=== PATIENT | female | born 1945 | race Caucasian/White ===

== ENCOUNTER 2016-05-31 13:04 | Inpatient (IN) | payer OTHER, MEDICARE ==
--- NOTE | 2016-05-31 13:00 | EDPHY ---
H & P Source: Patient Exam Limitations: No limitations Constitutional: Initial Vital Signs Temperature (C) 36.5 C 05/31/16 13:13 Heart Rate 82 05/31/16 13:13 Respiratory Rate 18 05/31/16 13:13 Blood Pressure 150/66 H 05/31/16 13:13 O2 Sat (%) 99 05/31/16 13:13 O2 Delivery Mode Room Air Allergies/Adverse Reactions: No Known Allergies Allergy (Unverified 05/31/16 13:11) Home Medications: Medication Instructions Recorded Trintellix 05/31/16 Visicare 05/31/16 buPROPion 05/31/16 traZODONE 100MG (*) 05/31/16 Medical Decision Making ED Course/Re-evaluation: CHIEF COMPLAINT: Right hip pain. HISTORY OF PRESENT ILLNESS: The patient is a 70-year-old female who presents via EMS with right hip pain secondary to falling down 4 stairs and landing on concrete just prior to arrival. The pain does not radiate and is worsened with movement. She did not hit her head. She has a small amount of neck pain but full range of motion. The fall was mechanical and she denies preceding factors such as dizziness, chest pain, shortness of breath. She denies numbness, weakness, paresthesias, chest pain, or other complaints. REVIEW OF SYSTEMS: A 10 point review of systems was performed and is negative with the exception of the elements mentioned in the history of present illness. PHYSICAL EXAM: HR, BP, O2 Sat, RR. Temp noted General Appearance: Alert, well hydrated, appropriate, and non-toxic appearing. Head: Atraumatic without scalp tenderness or obvious injury Eyes: Pupils equal, round, reactive to light and accommodation, EOMI, no trauma , no injection. Ears: Clear bilaterally, no perforation, normal landmarks Nose: Atraumatic, no rhinorrhea, clear. Throat: There is no erythema or exudates, no lesions, normal tonsils, mucus membranes moist. Neck: Supple, 2+ carotid upstroke, nontender, no lymphadenopathy. Full ROM. Respiratory: No retractions, no distress, no wheezes, and no accessory muscle use. Lungs are clear to auscultation bilaterally. Cardiovascular: Regular rate and rhythm, no murmurs, rubs, or gallops. Bilateral carotid, radial, dorsalis pedis, and posterior tibial pulses intact. Good capillary refill all extremities. Gastrointestinal: Abdomen is soft, nontender, non-distended, no masses, no rebound, no guarding, no peritoneal signs. Musculoskeletal: Pain along pelvic brim and anterior/inferior/superior iliac spine. Neurological: Alert, appropriate, and interactive. The patient has normal DTRs and non-focal cranial nerves, motor, sensory, and cerebellar exam. Skin: No rashes, good turgor, no nodules on palpation. Past medical history: Tibial plateau fracture. Past surgical history: Denies. Family history: N/A. Social history: . DIAGNOSTICS/PROCEDURES/CRITICAL CARE TIME: Study: Right Hip x-ray Indication: Trauma. Results: I viewed the images myself on the PACS system. My interpretation of the images is: pelvic fracture. The radiologist interpretation is pending at the time of this dictation. Study: Right Shoulder X-ray Indication: Trauma. Results: I viewed the images myself on the PACS system. My interpretation of the images is: no acute process. The radiologist interpretation is pending at the time of this dictation. Study: Chest X-ray Indication: Trauma. Results: I viewed the images myself on the PACS system. My interpretation of the images is: no acute process. The radiologist interpretation is pending at the time of this dictation. Study: CT of the pelvis. Indication: Trauma. Results: 1. Fracture right inferior pubic ramus and right symphysis. No associated lytic or sclerotic osseous lesion. 2. Fracture of the right sacrum adjacent to the SI joint as well as nondisplaced fracture right transverse process of L5. 3. Thickening of the right piriformis muscle probably related to the right sacral fracture. This could represent associated contusion of the muscle. 4. Hypodense possible complex cyst right adnexa. Consider pelvic ultrasound at some point for further characterization. The study was read by the radiologist, Dr. Dillard. I viewed the images myself on the PACS system. DIFFERENTIAL DIAGNOSIS: The differential diagnosis for the patient's trauma included but was not limited to long bone and pelvic bone fractures, spinal injury, sacroiliitis. MEDICAL DECISION MAKIN-year-old female presents with right hip pain after falling down 4 stairs onto concrete. On exam she has tenderness along the right pelvic brim and over the ant/inf/sup iliac spine. This pain appears severe and is worsened with movement. She has mild lateral neck pain but full range of motion. She did not hit her head or lose consciousness. It is clear this was a mechanical fall and she did not experience a syncopal episode. She is not complaining of numbness, weakness, or paresthesias. Right hip, chest, and right shoulder x-rays ordered. .5mg IV Dilaudid for pain. I ordered lab work to account for the possibility of surgical repair. This patient has been followed by [facility] prior to today for tibial plateau fracture. Right hip shows pelvic fracture. Pelvic CT ordered to further delineate extent of fracture. Chest and right shoulder x-rays negative as interpreted by me. 1449: CT results conveyed to me by Dr. Dillard. See report above. 1454: Consulted with Dr. Collier, orthopedics. He will consult on the patient and view imaging studies. 1458: Consulted with Dr. Silva, hospitalist. She accepts admission. Neurosurgery paged. 1500: Consulted with Dr. Garay, neurosurgery. He will consult on the patient. 1507: Consulted with Dr. Fam, surgery. He will consult on the patient. I discussed with the patient the results of her course and imaging. I answered all of her questions. - Data Points Laboratory Results: Laboratory Results 05/31/16 14:00 05/31/16 14:00 05/31/16 05/31/16 05/31/16 15:00 14:00 14:00 WBC RBC Hgb Hct MCV MCH MCHC RDW Plt Count MPV Neut % (Auto) Lymph % (Auto) [place] % (Auto) Eos % (Auto) Baso % (Auto) Nucleat RBC Rel Count Absolute Neuts (auto) Absolute Lymphs (auto) Absolute Monos (auto) Absolute Eos (auto) Absolute Basos (auto) Absolute Nucleated RBC Immature Gran % Immature Gran # PT 12.6 SEC SEC (12.0-15.0) INR 0.95 (0.83-1.16) APTT 29.9 SEC SEC (23.0-38.0) Sodium 139 mEq/L mEq/L (134-144) Potassium 4.0 mEq/L mEq/L (3.5-5.2) Chloride 105 mEq/L mEq/L (97-110) Carbon Dioxide 24 mEq/l mEq/l (22-31) Anion Gap 10 mEq/L mEq/L (8-16) BUN 20 mg/dL mg/dL (7-23) Creatinine 0.9 mg/dL mg/dL (0.6-1.0) Estimated GFR > 60 Glucose 86 mg/dL mg/dL (70-100) Calcium 10.1 mg/dL mg/dL (8.5-10.4) Urine Color Pending Urine Appearance Pending Urine pH Pending Ur Specific [place] Pending Urine Protein Pending Urine Ketones Pending Urine Blood Pending Urine Nitrate Pending Urine Bilirubin Pending Urine Urobilinogen Pending Ur Leukocyte Esterase Pending Ur Culture Indicated? Pending Urine Glucose Pending 05/31/16 14:00 WBC 13.81 10^3/uL H 10^3/uL (3.80-9.50) RBC 4.35 10^6/uL 10^6/uL (4.18-5.33) Hgb 13.7 g/dL g/dL (12.6-16.3) Hct 41.1 % % (38.0-47.0) MCV 94.5 fL fL (81.5-99.8) MCH 31.5 pg pg (27.9-34.1) MCHC 33.3 g/dL g/dL (32.4-36.7) RDW 13.2 % % (11.5-15.2) Plt Count 217 10^3/uL 10^3/uL (150-400) MPV 10.0 fL fL (8.7-11.7) Neut % (Auto) 81.2 % H % (39.3-74.2) Lymph % (Auto) 11.7 % L % (15.0-45.0) [place] % (Auto) 5.3 % % (4.5-13.0) Eos % (Auto) 0.4 % L % (0.6-7.6) Baso % (Auto) 0.4 % % (0.3-1.7) Nucleat RBC Rel Count 0.0 % % (0.0-0.2) Absolute Neuts (auto) 11.22 10^3/uL H 10^3/uL (1.70-6.50) Absolute Lymphs (auto) 1.61 10^3/uL 10^3/uL (1.00-3.00) Absolute Monos (auto) 0.73 10^3/uL 10^3/uL (0.30-0.80) Absolute Eos (auto) 0.05 10^3/uL 10^3/uL (0.03-0.40) Absolute Basos (auto) 0.06 10^3/uL 10^3/uL (0.02-0.10) Absolute Nucleated RBC 0.00 10^3/uL 10^3/uL (0-0.01) Immature Gran % 1.0 % % (0.0-1.1) Immature Gran # 0.14 10^3/uL H 10^3/uL (0.00-0.10) PT INR APTT Sodium Potassium Chloride Carbon Dioxide Anion Gap BUN Creatinine Estimated GFR Glucose Calcium Urine Color Urine Appearance Urine pH Ur Specific [place] Urine Protein Urine Ketones Urine Blood Urine Nitrate Urine Bilirubin Urine Urobilinogen Ur Leukocyte Esterase Ur Culture Indicated? Urine Glucose Medications Given: Discontinued Medications Hydromorphone HCl (Dilaudid) 0.5 mg IVP EDNOW ONE Stop: 05/31/16 13:30 Last Admin: 05/31/16 13:42 Dose: 0.5 mg Hydromorphone HCl (Dilaudid) 0.5 mg IVP EDNOW ONE Stop: 05/31/16 14:03 Last Admin: 05/31/16 14:10 Dose: 0.5 mg Hydromorphone HCl (Dilaudid) 0.5 mg IVP EDNOW ONE Stop: 05/31/16 14:43 Last Admin: 05/31/16 14:47 Dose: 0.5 mg Departure - Departure Disposition: [facility] In[facility] Acute Clinical Impression: Adnexal cyst Pelvic fracture Qualifiers: Encounter type: initial encounter Pelvic bone location: multiple parts Fracture type: closed Fracture alignment: without disruption of pelvic ring Qualified Code(s): S32.82XA - Multiple fractures of pelvis without disruption of pelvic ring, initial encounter for closed fracture Lumbar transverse process fracture Qualifiers: Encounter type: initial encounter Fracture type: closed Qualified Code(s): S32.008A - Other fracture of unspecified lumbar vertebra, initial encounter for closed fracture Sacral fracture Qualifiers: Encounter type: initial encounter Zone of sacrum fracture: unspecified portion of sacrum Fracture type: closed Qualified Code(s): S32.10XA - Unspecified fracture of sacrum, initial encounter for closed fracture Condition: Fair Referrals: Patient,NotPresent [Unknown] - As per Instructions Report Scribed for: He Cervantes Report Scribed by: Logan Wells Date of Report: 05/31/16 Time of Report: 13:26
[2016-05-31] MEDS ORDERED: HYDROmorphONE/DILAUDID 1 MG/ML SYR IVP ONE ×3 (13:29→14:42)
[2016-05-31 14:18] LABS: ABSOLUTE IMMATURE GRANULOCYTES 0.14 10^3/uL (0.00-0.10); ADD DIFF? NO; ADD MORPH? NO; ADD SCAN? NO; ATYPICAL LYMPHOCYTE FLAG 0 (0-99); FRAGMENT RBC FLAG 0 (0-99); HEMATOCRIT 41.1 % (38.0-47.0); HEMOGLOBIN 13.7 g/dL (12.6-16.3); LEFT SHIFT FLG 10 (0-99); LIPEMIA HEMOLYSIS FLAG 80 (0-99); MEAN CELL HEMOGLOBIN 31.5 pg (27.9-34.1); MEAN CELL HEMOGLOBIN CONCENTR. 33.3 g/dL (32.4-36.7); MEAN CELL VOLUME 94.5 fL (81.5-99.8); PLATELET CLUMPS FLAG 10 (0-99); PLATELET COUNT 217 10^3/uL (150-400); RED BLOOD CELL COUNT 4.35 10^6/uL (4.18-5.33); RED CELL DISTRIBUTION WIDTH 13.2 % (11.5-15.2)
[2016-05-31 14:36] LABS: ANION GAP 10 mEq/L (8-16); CALCIUM 10.1 mg/dL (8.5-10.4); CARBON DIOXIDE 24 mEq/l (22-31); CHLORIDE 105 mEq/L (97-110); CREATININE 0.9 mg/dL (0.6-1.0); GLOMERULAR FILTRATION RATE > 60; GLUCOSE 86 mg/dL (70-100); SODIUM 139 mEq/L (134-144)
[2016-05-31 14:37] LABS: APTT 29.9 SEC (23.0-38.0); INR 0.95 (0.83-1.16); PROTIME(PATIENT) 12.6 SEC (12.0-15.0)
[2016-05-31 15:11] LABS: COLOR YELLOW; LEUKOCYTE ESTERASE,URINE NEGATIVE (NEGATIVE); NITRITE,URINE NEGATIVE (NEGATIVE)
[2016-05-31] MEDS ORDERED: HYDROmorphONE/DILAUDID 2 MG/ML INJ IVP ONE (15:46)
[2016-05-31] MEDS ORDERED: ONDANSETRON 4 MG/2 ML VIAL IVP ONE (15:46)
[2016-05-31] MEDS ORDERED: ONDANSETRON DISINTEGRATING 4 MG TAB PO PRN (15:48)
[2016-05-31] MEDS ORDERED: ACETAMINOPHEN 325 MG TAB PO PRN (15:48)
--- NOTE | 2016-05-31 16:22 | GHP ---
[f rep st] HISTORY AND PHYSICAL DATE OF ADMISSION: 05/31/2016 CHIEF COMPLAINT: Fall. HISTORY OF PRESENT ILLNESS: This is a 70-year-old female with not a lot of significant medical prob lems. She sustained a mechanical fall off her porch, fell 4 steps onto the concrete, and had immedi ate pelvic pain. She actually inched her way back to the house, was unable to call anybody for a co uple hours. She denies any syncope and admits that she tripped over a throw rug. She is currently having pelvic pain. She denies any other symptoms. REVIEW OF SYSTEMS: A 10-point review of systems was obtained and otherwise negative. PAST MEDICAL HISTORY: Depression. MEDICATIONS: Reviewed. SOCIAL HISTORY: She does smoke 7-10 per cigarettes a day. Quit alcohol 3 years ago. FAMILY HISTORY: Reviewed, noncontributory. PHYSICAL EXAMINATION: VITAL SIGNS: Afebrile, blood pressure is 150/66, heart rate 82, oxygen satur ation 99% on room air. GENERAL: The patient is well developed, no apparent distress. HEENT: Bertha cteric sclerae. Extraocular movements intact. Moist mucous membranes. NECK: Supple. No thyromeg joao. LUNGS: Good effort. Clear to auscultation bilaterally. CARDIOVASCULAR: Regular rate and rh ythm. No murmurs, rubs, or gallops. ABDOMEN: Positive bowel sounds. Soft, nontender, nondistende d. No hepatosplenomegaly. EXTREMITIES: No clubbing, cyanosis, or edema. SKIN: Without rash. Wa rm, dry, intact. NEUROLOGIC: Alert and oriented x3. Moving all 4 extremities equally. PSYCH: No rmal mood and affect. LABORATORIES: White count 13, otherwise normal. Chemistries normal. UA is negative. Pelvic CT shows inferior pubic ramus fracture and fracture of the right sacrum as well as nondisplac ed fracture of transverse process L5. ASSESSMENT: 70-year-old female presenting with multiple fractures status post fall. PLAN: 1. Pelvic fracture and transverse process fracture: Orthopedic Surgery and Neurosurgery will see t he patient. I suspect this is all nonoperative. Will await further weightbearing orders and start therapy. Will check a vitamin D level as she possibly has some underlying osteoporosis. 2. Depression: Continue medications. 3. Tobacco abuse: Patient does want to quit smoking. Will start a Nicorette patch. 4. DVT prophylaxis: Probably start tomorrow with Lovenox if okay with Surgery. I might wait ano er day as she does have some possible muscle contusion on CT scan. /[id number]/MODL
[2016-05-31] MEDS: NICOTINE 14 MG/24 HR PATCH TD SCH (16:47)
[2016-05-31] MEDS: OXYCODONE/APAP 5/325 TAB PO PRN (19:47)
[2016-05-31] MEDS: ONDANSETRON 4 MG/2 ML VIAL IVP PRN (19:52)
--- NOTE | 2016-05-31 21:02 | GCON ---
[f rep st] CONSULTATION REASON FOR CONSULTATION: Low back pain and right L5 transverse process fracture. HOSPITAL COURSE/HISTORY OF MAJOR MEDICAL FINDINGS: The patient is a 70-year- old female, who presented to the ER via EMS with right hip pain secondary to falling down 4 stairs and landing on concrete. The patient states that the pain does not radiate. It is worse with movement. She did not hit her head per the ER report. She has a small amount of neck pain but full range of motion. She denies any leg numbness, tingling or weakness. The patient denies any loss of bowel or bladder control. PAST MEDICAL HISTORY: Significant for depression. MEDICATIONS: At home include Wellbutrin 200 mg 1 p.o. b.i.d., calcium carbonate 500 mg 1 p.o. daily, vitamin D3 1000 units 1 p.o. daily, vitamin B12 1000 mcg 1 p.o. daily, milk of magnesia 45 mL 1 p.o. q.h.s., omega-3 fish oil 1000 units daily, VESIcare 10 mg 1 p.o. daily, trazodone 200 mg 1 p.o. q.h.s.. ALLERGIES: No known drug allergies. PAST SURGICAL HISTORY: Patient denies. SOCIAL HISTORY: The patient is a smoker. She smokes approximately 7-10 cigarettes per day. She quit drinking approximately 3 years ago. FAMILY HISTORY: Significant for alcoholism in her father, as well as prostate cancer. She has depression in her sister who did ultimately commit suicide. PHYSICAL EXAM: VITAL SIGNS: Blood pressure 147/67, heart rate 83. She is 92% on room air. Temperature is 36.9. NEUROLOGIC: The patient was in no acute distress. She was alert and oriented x3. She answered questions appropriately. Her affect was appropriate for the given situation. Cranial nerves 2-12 were grossly intact. EOMI and PERRLA. The patient had 5/5 and equal in her bilateral upper extremities including her deltoids, triceps, biceps , wrist flexors, extensors, interossei, intrinsic trimmer hand, iliopsoas, hamstrings, quadriceps, plantar flexion, dorsiflexion, EHL. There is some limited range of motion with her right hip secondary to pain. Sensation intact in the bilateral upper and bilateral lower extremities. DIAGNOSTIC REVIEW: The patient underwent a CT of her pelvis which demonstrated a right inferior pubic ramus and right symphysis fracture. There is a fracture of the right sacrum adjacent to the SI joint, as well as a nondisplaced fracture of the right transverse process of L5. There is a thickening of the right piriformis muscle, probably related to her right sacral fracture, and can be consistent with contusion in the muscle. There is also a hypodense possible complex cyst in the right adnexa. ASSESSMENT/PLAN: The patient is a 70-year-old female s/p fall down stairs, who sustained a right pelvic fracture as well as a right transverse process of L5. The patient was seen both by Dr. Garay and myself. At this point in time, we do not recommend any further bracing or surgical treatment for her right transverse process fracture. We recommend optimizing pain management and further treatment recommendations for her pelvis fractures will come from Orthopedic Surgery. At this point in time, we would optimize pain management. Patient should follow up with her primary care doctor upon discharge. Also discussed with the patient the finding of her hypodense possible cystic complex in the right adnexa. I have recommended to the patient that she follow up with her primary care provider for further imaging/treatment recommendations of this cyst. We will sign off at this time. If there are any further questions or concerns, please notify Neurosurgery. /[id number]/MODL MTDD
--- NOTE | 2016-05-31 22:24 | SOAPPROG ---
SOAP Progress Note Assessment/Plan: Assessment: 70 FEMALE WITH SHORT FALL SUSTAINING PELVIC FX AND RT 5TH TRANSVERSE PROCESS FX NO ANTICOAGULANTS/ NO LOC HEENT -/ CHEST CLEAR, NONTENDER/ COR RR ABD SOFT, TENDER RT PUBIC RAMUS EXTR FULL ROM/ NEURO INTACT Plan:ADMIT FOR OBS, ORTHO AND NEURO CONSULTS 05/31/16 22:20 Objective: Vital Signs Temp Pulse Resp BP Pulse Ox 36.5 C 77 18 159/86 H 97 05/31/16 20:00 05/31/16 20:00 05/31/16 20:00 05/31/16 20:00 05/31/16 20:00 05/30/16 05/31/16 06/01/16 05:59 05:59 05:59 Intake Total 250 Balance 250 PT 12.6 SEC (12.0-15.0) 05/31/16 14:00 INR 0.95 (0.83-1.16) 05/31/16 14:00 ICD10 Worksheet Patient Problems: Problems Problem Status Onset Adnexal cyst Acute Lumbar transverse process fracture Acute Pelvic fracture Acute Sacral fracture Acute
--- NOTE | 2016-05-31 22:42 | GCON ---
[f rep st] CONSULTATION DATE OF CONSULTATION: 05/31/2016 CHIEF COMPLAINT: Right pelvic fractures. HISTORY OF PRESENT ILLNESS: This is a 70-year-old female, who fell on her porch. She fell down abo ut 4 steps on concrete, had immediate pelvic pain, and difficulty walking. She was able to get back to the house. Eventually called for help, and was taken to the ER. She denies any syncope. She d enies prior pelvic pain or other problems. She currently has pain in right hip, pelvis, and pain ra diating down her right leg. REVIEW OF SYSTEMS: Ten-point review of system otherwise negative. PAST MEDICAL HISTORY: Depression. MEDICATIONS: Reviewed and noncontributory. SOCIAL HISTORY: She does smoke about 7-10 cigarettes a day. Alcohol: She quit 2 years ago. FAMILY HISTORY: Reviewed and noncontributory. PHYSICAL EXAMINATION: GENERAL APPEARANCE: She is alert, oriented, somewhat thin appearing. She do es not appear in any acute distress. HEAD: Normocephalic and atraumatic. EYES: Equal and shows g ood eye movements. MOUTH: Shows moist mucous membranes. NECK: Supple. LUNGS: Show good effort, and she has symmetric chest rise bilaterally. CARDIAC: Pulse is regular rate and rhythm. ABDOMEN : Soft. EXTREMITIES: Without abnormality. Good range of motion. No areas of tenderness. Good s trength. Lower extremities: The right lower extremity, attempted range of motion does cause her pe lvic pain, and I can range her hip somewhat. She can perform a straight leg raise. She holds her f oot in a plantar flexed position, but she can dorsiflex with 5/5 strength with her EHL and dorsiflex ion. She has 4/5 plantar flexion strength. She does complain of pain radiating down the L5 distrib ution. She does have good range of motion on the left lower extremity. No pain, no sciatic-type pa in. Good strength 5/5 with dorsiflexion, plantar flexion, EHL and FHL. IMAGING: X-ray does show a fracture of the right inferior and superior pubic rami and a sacral frac ture. Her CT shows inferior and superior rami fractures, a right sacral fracture, which is minimally displ aced, and a transverse process L5 fracture. ASSESSMENT: A 70-year-old female with pelvic ring fracture. PLAN: Discussed the treatment of her condition and treatment options. I believe the fracture is st able, and I recommend nonoperative treatment for this. We will start her on weightbearing restricti ons, with toe-touch weightbearing on the right, full weightbearing on the left. She will mobilize w ith therapy. She is started on DVT prophylaxis, with Lovenox, SCDs, and BRIDGET hose. Neurosurgery roma l also be consulting on the L5 transverse process fracture, and have them comment on her radicular p ain presumably in the L5 distribution for any further recommendations with that. We will plan to re peat x-rays when I see her back in 6 weeks. I will follow her along in the hospital. /[id number]/MODL
--- NOTE | 2016-05-31 23:03 | GCON ---
[f rep st] CONSULTATION DATE OF CONSULTATION: 05/31/2016 REASON FOR CONSULTATION: The patient is a 70-year-old female who had a short fall by tripping at he r home. HISTORY OF PRESENT ILLNESS: She was brought to the ER complaining of pelvic pain. She denies any l oss of consciousness. She is on no anticoagulants. PAST MEDICAL HISTORY: Includes depression. PAST SURGICAL HISTORY: Includes no major surgeries or serious hospitalizations. REVIEW OF SYSTEMS: Reveals no major medical problems. No diabetes, asthma or cardiopulmonary sympt oms. SOCIAL HISTORY: She does smoke half-a-pack per day. MEDICATIONS: Include Wellbutrin, VESIcare, trazodone, and vitamins. ALLERGIES: None. PHYSICAL EXAMINATION: GENERAL: An alert 70-year-old female in no acute distress. VITAL SIGNS: Bl ood pressure 140/70, heart rate of 80. HEAD AND NECK: Exam reveals no evidence of trauma. Pupils are normal. Neck is supple, nontender. CHEST: Clear to auscultation and percussion, is symmetric. She has some tenderness in the left chest wall, but no palpable rib fractures or clavicle fracture s. CARDIAC: Exam reveals a regular rhythm. ABDOMEN: Soft, with normal bowel sounds, and nondiste nded. She is quite tender over her right symphysis and superior pubic ramus and her inferior pubic ramus. EXTREMITIES: Reveal full pulses, full range of motion. NEUROLOGIC: Exam is physiologic. IMAGING: Studies reveal a right sacral fracture, a right 5th transverse process fracture, a right s uperior ramus fracture, as well as an inferior ramus fracture. IMPRESSION: 1. Multiple pelvic fractures. 2. A 5th transverse process fracture. PLAN: Admit to Medicine for further evaluation. We will follow her on the Trauma service. She kathy uld be able to toe-touch weightbear on the right leg, and full weightbearing on the left. This will require coaches with a walker and physical therapy. /[id number]/MODL
[2016-06-01] MEDS: oxyCODONE IR 5 MG TAB PO PRN ×5 (00:11→17:43)
[2016-06-01] MEDS: ONDANSETRON 4 MG/2 ML VIAL IVP PRN ×3 (00:11→20:52)
--- NOTE | 2016-06-01 06:50 | NEUSURGPN ---
Assessment/Plan: Assessment: 70 yo female that is s/p fall with pelvic fracture as well as L5 TP fx Plan: -L5 TP fracture: pt states that back is not that bad this am. Her main pain is pelvic fractures -no bracing or further treatment needed for TP fracture-no follow up needed -defer to Ortho for pelvic fractures -Trauma admitted -PT/OT ok from as spine aspect -call with any questions or concerns -take medications as directed -NS to sign off at this time -please call with any further concerns or problems -pt seen by Dr Garay as well Subjective: Awake and alert. NAD. Eating/drinking and voiding. No f/c/n/v/d. Objective: AAO x 3, PERRLA/EOMI no droop CN 2-12 grossly intact +lt touch 5/5 BUE/BLE = limited to BLE due to pain-no focal weakness +cms/nv intact x 4 Neuro Check Frequency: per routine Urinary Catheter in Place: No - Physician Discussed Patient with : Jarrod Patient Seen by : Jarrod Neurosurgery Physical Exam - Vitals, I&O, Labs I and O 05/31/16 06/01/16 06/02/16 05:59 05:59 05:59 Intake Total 450 Output Total 400 Balance 50 Weight 47.62 kg Intake: Oral (ml) 450 Output: Urine (ml) 400 Bedpan 400 Other: Number of Voids Bedpan 1 Vital Signs Temp Pulse Resp BP Pulse Ox 36.9 C 82 16 139/67 H 96 06/01/16 04:56 06/01/16 04:56 06/01/16 04:56 06/01/16 04:56 06/01/16 04:56 ICD10 Worksheet Patient Problems: Problems Problem Status Onset Adnexal cyst Acute Lumbar transverse process fracture Acute Pelvic fracture Acute Sacral fracture Acute
[2016-06-01] MEDS: NICOTINE 14 MG/24 HR PATCH TD SCH (08:35)
[2016-06-01] MEDS: buPROPion SR 100 MG TAB PO SCH ×2 (09:16→20:51)
[2016-06-01] MEDS: ENOXAPARIN 30 MG/0.3 ML SYR SC SCH (09:17)
[2016-06-01] MEDS: OXYCODONE/APAP 5/325 TAB PO PRN ×2 (09:17→15:51)
[2016-06-01] MEDS: SOLIFENACIN SUCCINATE 5 MG TAB PO SCH (09:18)
[2016-06-01] MEDS ORDERED: MAGNESIUM HYDROXIDE 30 ML UDCUP PO PRN (11:45)
[2016-06-01] MEDS ORDERED: BISACODYL 10 MG SUPP PR PRN (11:45)
[2016-06-01] MEDS ORDERED: LACTULOSE 20 GM/30 ML UDCUP PO PRN (11:45)
[2016-06-01] MEDS ORDERED: POLYETHYLENE GLYCOL 3350 17 GM PKT PO PRN (11:45)
--- NOTE | 2016-06-01 11:49 | TRAUMAPN ---
Assessment/Plan: Have added a bowel protocol. Stable from a general surgery standpoint. Will sign off at this time. Please call if surgery can be of any further assistance Subjective: C/o of right hip and pelvis pain No stool yet No new complaints Objective: Vital Signs Temp Pulse Resp BP Pulse Ox 36.8 C 84 16 129/69 H 89 L 06/01/16 07:44 06/01/16 07:44 06/01/16 07:44 06/01/16 07:44 06/01/16 08:52 05/31/16 06/01/16 06/02/16 05:59 05:59 05:59 Intake Total 450 Output Total 400 200 Balance 50 -200 PT 12.6 SEC (12.0-15.0) 05/31/16 14:00 INR 0.95 (0.83-1.16) 05/31/16 14:00 Physical Exam - Physical Exam General Appearance: WD/WN, alert, mild distress Neck: non-tender, full range of motion, supple, normal inspection Respiratory: chest non-tender, lungs clear, normal breath sounds Cardiac/Chest: regular rate, rhythm Abdomen: normal bowel sounds, non-tender, soft Pelvic Exam: deferred Rectal: deferred Back: Normal inspection Skin: normal color, warm/dry Extremities: normal range of motion, non-tender Time Spent w/Patient (minutes): 15
--- NOTE | 2016-06-01 13:47 | SOAPPROG ---
MICHAEL Progress Note Assessment/Plan: Assessment: R sup/inf rami fracture R sacral fracture Plan: toe touch wt bearing on RLE wbat on LLE pain management will defer to nuerosurgery for L5 radicular pain will likely need placement after discharge follow up with me in 2 weeks, she has my card for appt lovenox for 10 days followed by ASA 325mg qday for 6 weeks total 06/01/16 13:44 Subjective: pain in pelvis Objective: Vital Signs Temp Pulse Resp BP Pulse Ox 37.1 C 81 16 124/46 H 97 06/01/16 12:00 06/01/16 12:00 06/01/16 12:00 06/01/16 12:00 06/01/16 12:00 05/31/16 06/01/16 06/02/16 05:59 05:59 05:59 Intake Total 450 450 Output Total 400 200 Balance 50 250 PT 12.6 SEC (12.0-15.0) 05/31/16 14:00 INR 0.95 (0.83-1.16) 05/31/16 14:00 similar to yesteday with pain with df and pf of foot pain with any hip rom ICD10 Worksheet Patient Problems: Problems Problem Status Onset Adnexal cyst Acute Lumbar transverse process fracture Acute Pelvic fracture Acute Sacral fracture Acute
[2016-06-01] MEDS: Vortioxetine Hydrobromide [Trintellix] 20 MG PO SCH (14:02)
--- NOTE | 2016-06-01 14:39 | CPEKG ---
Heart Rate: 92 RR Interval: 652 P-R Interval: 156 QRSD Interval: 90 QT Interval: 384 QTC Interval: 476 P [place]: 77 QRS [place]: -44 T Wave [place]: 70 EKG Severity - OTHERWISE NORMAL ECG - EKG Impression: SINUS RHYTHM EKG Impression: LEFT AXIS DEVIATION Electronically Signed By: Tunde Vang 01-Jun-2016 20:47:01
[2016-06-01 15:23] LABS: CREATINE KINASE-MB FRACTION 1.85 ng/mL (0-3.19); TROPONIN I < 0.012 ng/mL (0-0.034)
[2016-06-01] MEDS ORDERED: MAG HYDROX/AL HYDROX/SIMETH 30 ML UDCUP PO ONE (15:30)
[2016-06-01] MEDS ORDERED: LIDOCAINE 2% VISCOUS 15 ML UDCUP PO ONE (15:30)
[2016-06-01] MEDS ORDERED: HYOSCYAMINE SULFATE 0.125 MG TAB PO ONE (15:30)
--- NOTE | 2016-06-01 16:27 | HOSPPROG ---
Hospitalist Progress Note Assessment/Plan: * pelvic fractures and left transverse process fracture * continue physical therapy * chest pain * EKG is nonischemic * will check cardiac enzymes * will also check CT scan of the chest to rule out PE * suspected is GI - will give GI cocktail * history of depression * DVT prophylaxis * Lovenox Subjective: solid this morning and was doing well. However called this afternoon for severe chest pain. She states this is pressure and worse with inspiration. Also feels burning sensation some epigastric pain Objective: Vital Signs Temp Pulse Resp BP Pulse Ox 36.6 C 83 16 145/73 H 98 06/01/16 15:16 06/01/16 15:16 06/01/16 15:16 06/01/16 15:16 06/01/16 15:16 05/31/16 06/01/16 06/02/16 05:59 05:59 05:59 Intake Total 450 450 Output Total 400 200 Balance 50 250 PT 12.6 SEC (12.0-15.0) 05/31/16 14:00 INR 0.95 (0.83-1.16) 05/31/16 14:00 EKG personally reviewed interpreted shows left axis deviation but no ischemic changes - Physical Exam Constitutional: no apparent distress, appears nourished, not in pain Eyes: anicteric sclera, EOMI Ears, Nose, Mouth, Throat: moist mucous membranes, hearing normal, ears appear normal, no oral mucosal ulcers Cardiovascular: regular rate and rhythym, no murmur, rub, or gallop Respiratory: no respiratory distress, no rales or rhonchi, clear to auscultation Gastrointestinal: normoactive bowel sounds, soft, non-tender abdomen (mild epigastric tenderness), tenderness Neurologic: AAOx3 Psychiatric: interacting appropriately, not anxious, not encephalopathic, thought process linear ICD10 Worksheet Patient Problems: Problems Problem Status Onset Adnexal cyst Acute Lumbar transverse process fracture Acute Pelvic fracture Acute Sacral fracture Acute
[2016-06-01] MEDS: FAMOTIDINE 20 MG TAB PO SCH ×2 (17:42→20:51)
[2016-06-01] MEDS: traZODone 100 MG TAB PO SCH (20:54)
[2016-06-01] MEDS: SENNOSIDES/DOCUSATE SODIUM TAB PO SCH (20:55)
[2016-06-02] MEDS: oxyCODONE IR 5 MG TAB PO PRN ×2 (05:57→09:49)
[2016-06-02] MEDS: ONDANSETRON 4 MG/2 ML VIAL IVP PRN ×2 (05:58→08:33)
[2016-06-02] MEDS: SOLIFENACIN SUCCINATE 5 MG TAB PO SCH (08:15)
[2016-06-02] MEDS: FAMOTIDINE 20 MG TAB PO SCH ×2 (08:15→20:40)
[2016-06-02] MEDS: OXYCODONE/APAP 5/325 TAB PO PRN ×3 (08:16→18:55)
[2016-06-02] MEDS: NICOTINE 14 MG/24 HR PATCH TD SCH (08:16)
[2016-06-02] MEDS: ENOXAPARIN 30 MG/0.3 ML SYR SC SCH (08:16)
[2016-06-02] MEDS: CALCIUM CARBONATE 500 MG TAB PO SCH (08:17)
[2016-06-02] MEDS: SENNOSIDES/DOCUSATE SODIUM TAB PO SCH ×2 (08:17→20:40)
[2016-06-02] MEDS: buPROPion SR 100 MG TAB PO SCH ×2 (08:17→20:40)
[2016-06-02] MEDS: Vortioxetine Hydrobromide [Trintellix] 20 MG PO SCH (08:21)
--- NOTE | 2016-06-02 15:11 | SOAPPROG ---
MICHAEL Progress Note Assessment/Plan: Assessment: R sup/inf rami fracture R sacral fracture Plan: toe touch wt bearing on RLE wbat on LLE pain management will defer to nuerosurgery for L5 radicular pain which is improving will likely need placement after discharge follow up with me in 2 weeks, she has my card for appt lovenox for 10 days followed by ASA 325mg qday for 6 weeks total 06/01/16 13:44 06/02/16 15:10 Subjective: pain in right hip Objective: Vital Signs Temp Pulse Resp BP Pulse Ox 37.1 C 91 16 102/71 91 L 06/02/16 11:38 06/02/16 11:38 06/02/16 11:38 06/02/16 11:38 06/02/16 11:38 06/01/16 06/02/16 06/03/16 05:59 05:59 05:59 Intake Total 450 450 700 Output Total 400 1050 1300 Balance 50 -600 -600 PT 12.6 SEC (12.0-15.0) 05/31/16 14:00 INR 0.95 (0.83-1.16) 05/31/16 14:00 nvi in LLE ICD10 Worksheet Patient Problems: Problems Problem Status Onset Adnexal cyst Acute Lumbar transverse process fracture Acute Pelvic fracture Acute Sacral fracture Acute
--- NOTE | 2016-06-02 15:45 | HOSPPROG ---
Hospitalist Progress Note Assessment/Plan: * pelvic fractures and left transverse process fracture * continue physical therapy * chest pain * negative EKG, cardiac enzymes and CT scan * resolved GI cocktail * history of depression * DVT prophylaxis * Lovenox * disposition - rehab versus home Subjective: chest pain is resolved. Still having pelvic pain Objective: Vital Signs Temp Pulse Resp BP Pulse Ox 37.2 C 94 16 119/51 L 97 06/02/16 15:41 06/02/16 15:41 06/02/16 15:41 06/02/16 15:41 06/02/16 15:41 06/01/16 06/02/16 06/03/16 05:59 05:59 05:59 Intake Total 450 450 700 Output Total 400 1050 1300 Balance 50 -600 -600 PT 12.6 SEC (12.0-15.0) 05/31/16 14:00 INR 0.95 (0.83-1.16) 05/31/16 14:00 - Physical Exam Constitutional: no apparent distress, appears nourished, not in pain Cardiovascular: regular rate and rhythym Respiratory: no respiratory distress Skin: warm Neurologic: AAOx3 ICD10 Worksheet Patient Problems: Problems Problem Status Onset Adnexal cyst Acute Lumbar transverse process fracture Acute Pelvic fracture Acute Sacral fracture Acute
[2016-06-02] MEDS: traZODone 100 MG TAB PO SCH (20:40)
[2016-06-03] MEDS: NICOTINE 14 MG/24 HR PATCH TD SCH (08:41)
[2016-06-03] MEDS: ENOXAPARIN 30 MG/0.3 ML SYR SC SCH (08:42)
[2016-06-03] MEDS: buPROPion SR 100 MG TAB PO SCH ×2 (08:42→20:01)
[2016-06-03] MEDS: CALCIUM CARBONATE 500 MG TAB PO SCH (08:42)
[2016-06-03] MEDS: SENNOSIDES/DOCUSATE SODIUM TAB PO SCH ×2 (08:42→20:02)
[2016-06-03] MEDS: FAMOTIDINE 20 MG TAB PO SCH ×2 (08:42→20:01)
[2016-06-03] MEDS: SOLIFENACIN SUCCINATE 5 MG TAB PO SCH (08:42)
[2016-06-03] MEDS: OXYCODONE/APAP 5/325 TAB PO PRN ×2 (09:01→12:23)
[2016-06-03] MEDS: Vortioxetine Hydrobromide [Trintellix] 20 MG PO SCH (09:04)
[2016-06-03] MEDS: oxyCODONE IR 5 MG TAB PO PRN ×2 (14:21→20:01)
--- NOTE | 2016-06-03 16:07 | HOSPPROG ---
Hospitalist Progress Note Assessment/Plan: * pelvic fractures and left transverse process fracture * continue physical therapy * chest pain * negative EKG, cardiac enzymes and CT scan * resolved GI cocktail * history of depression * DVT prophylaxis * Lovenox * disposition - rehab tomorrow Subjective: complaining of continued pelvic pain Objective: Vital Signs Temp Pulse Resp BP Pulse Ox 37.0 C 84 16 122/61 H 90 L 06/03/16 15:54 06/03/16 15:54 06/03/16 15:54 06/03/16 15:54 06/03/16 15:54 06/02/16 06/03/16 06/04/16 05:59 05:59 05:59 Intake Total 450 1100 700 Output Total 1050 2100 300 Balance -600 -1000 400 PT 12.6 SEC (12.0-15.0) 05/31/16 14:00 INR 0.95 (0.83-1.16) 05/31/16 14:00 - Physical Exam Constitutional: no apparent distress, appears nourished, not in pain Eyes: anicteric sclera, EOMI Ears, Nose, Mouth, Throat: moist mucous membranes Cardiovascular: regular rate and rhythym Respiratory: no respiratory distress Skin: warm Neurologic: AAOx3 ICD10 Worksheet Patient Problems: Problems Problem Status Onset Adnexal cyst Acute Lumbar transverse process fracture Acute Pelvic fracture Acute Sacral fracture Acute
[2016-06-03] MEDS: traZODone 100 MG TAB PO SCH (20:01)
[2016-06-04] MEDS: oxyCODONE IR 5 MG TAB PO PRN ×2 (05:04→12:29)
[2016-06-04] MEDS: SENNOSIDES/DOCUSATE SODIUM TAB PO SCH (08:58)
[2016-06-04] MEDS: ENOXAPARIN 30 MG/0.3 ML SYR SC SCH (08:58)
[2016-06-04] MEDS: buPROPion SR 100 MG TAB PO SCH (08:59)
[2016-06-04] MEDS: SOLIFENACIN SUCCINATE 5 MG TAB PO SCH (08:59)
[2016-06-04] MEDS: OXYCODONE/APAP 5/325 TAB PO PRN ×2 (08:59→14:59)
[2016-06-04] MEDS: FAMOTIDINE 20 MG TAB PO SCH (08:59)
[2016-06-04] MEDS: CALCIUM CARBONATE 500 MG TAB PO SCH (08:59)
[2016-06-04] MEDS: Vortioxetine Hydrobromide [Trintellix] 20 MG PO SCH (09:00)
[2016-06-04] MEDS: NICOTINE 14 MG/24 HR PATCH TD SCH (09:05)
[2016-06-04] MEDS ORDERED: oxyCODONE CR 15 MG TAB PO SCH (10:00)
--- NOTE | 2016-06-04 10:52 | PDIAF ---
- Diagnosis Diagnosis: pelvic fracture Code Status: Full Code - Medication Management Discharge Medications: Medications to Continue on Transfer Calcium Carbonate [Oyster Shell Calcium 500 mg (*)] 500 mg PO DAILY 05/31/16 [ Last Taken 05/31/16 09:00] Cholecalciferol Vit D3 [Vitamin D3 (*)] 1,000 units PO BID 05/31/16 [Last Taken 05/31/16 09:00] Cyanocobalamin [Vitamin B12 (*)] 1,000 mcg PO DAILY 05/31/16 [Last Taken 09:00] Herbals/Supplements -Info Only 1 ea PO DAILY 05/31/16 [Last Taken Unknown] Magnesium Hydroxide [Milk of Magnesia] 45 ml PO HS 05/31/16 [Last Taken 21:00] Robinson-3 Fatty Acids [Fish Oil 1000 mg (*)] 1,000 mg PO BID 05/31/16 [Last Taken 05/31/16 10:00] Solifenacin Succinate [Vesicare] 10 mg PO DAILY 05/31/16 [Last Taken 05/31/16 09 :00] Vortioxetine Hydrobromide [Trintellix] 20 mg PO DAILY 05/31/16 [Last Taken 05/31 09:00] buPROPion SR [Wellbutrin 100mg SR (*)] 200 mg PO BID 05/31/16 [Last Taken 09:00] traZODONE 100MG (*) 200 mg PO HS 05/31/16 [Last Taken 05/30/16 21:00] Enoxaparin [Lovenox] 30 mg SC DAILY #0 syr 06/04/16 [Last Taken Unknown] Polyethylene Glycol 3350 [Miralax 17 gm (*)] 17 gm PO DAILY PRN #0 pkt 06/04/16 [Last Taken Unknown] Sennosides/Docusate Sodium [Senokot-S] 1 - 2 tab PO BID #0 tab 06/04/16 [Last Taken Unknown] oxyCODONE CR [Oxycontin] 15 mg PO BID #0 tab 06/04/16 [Last Taken Unknown] oxyCODONE IR [Oxycodone Ir (*)] 5 - 15 mg PO Q4HRS PRN #0 tab 06/04/16 [Last Taken Unknown] oxyCODONE/APAP 5/325 [Percocet 5/325 (*)] 1 - 2 tab PO Q4HRS PRN #0 tab [Last Taken Unknown] Discharge Medications: Refer to the Discharge Home Medication list for PRN reason. - Orders Services needed: Physical Therapy, Occupational Therapy - Follow Up Care Current Providers and Referrals: Patient,NotPresent [Unknown] - As per Instructions
[2016-06-04 14:13] VITALS: BP 143/73; PULSE 91; RESP 16; TEMP 98.1; O2SAT 98
--- NOTE | 2016-06-04 14:40 | GDS ---
[f rep st] DISCHARGE SUMMARY DISCHARGE DIAGNOSIS: 1. Status post fall with multiple pelvic fractures and L5 transverse process fracture. 2. Depression. HISTORY: This is a 70-year-old female who slipped on the stairs and had sustained multiple pelvic f ractures, as well as a transverse process fracture. HOSPITAL COURSE: Patient was admitted. Trauma Surgery and Neurosurgery and Orthopedic Surgery were consulted. There were nonoperative treatment for all of her injuries. She will be continued in [facility] for pain control. She will be going to a nursing home facility for further rehab. On day of discharge, we did add a little bit of OxyContin, as her pain was really not well controlled, even at rest. Would monitor the effect of this for the next few days. Would also continue DVT pro phylaxis until more ambulatory. TIME SPENT: Greater than 30 minutes was spent on discharge. /[id number]/MODL
--- NOTE | 2016-06-04 14:51 | SOAPPROG ---
MICHAEL Progress Note Assessment/Plan: Assessment: R sup/inf rami fracture R sacral fracture Plan: toe touch wt bearing on RLE wbat on LLE pain management will defer to nuerosurgery for L5 radicular pain which is improving will likely need placement after discharge follow up with me in 2 weeks, she has my card for appt lovenox for 10 days followed by ASA 325mg qday for 6 weeks total 06/01/16 13:44 06/02/16 15:10 Subjective: pain slightly improved Objective: Vital Signs Temp Pulse Resp BP Pulse Ox 36.7 C 91 16 143/73 H 98 06/04/16 12:00 06/04/16 12:00 06/04/16 12:00 06/04/16 12:00 06/04/16 12:00 06/03/16 06/04/16 06/05/16 05:59 05:59 05:59 Intake Total 1100 1150 Output Total 2100 900 Balance -1000 250 PT 12.6 SEC (12.0-15.0) 05/31/16 14:00 INR 0.95 (0.83-1.16) 05/31/16 14:00 nvi distally ICD10 Worksheet Patient Problems: Problems Problem Status Onset Adnexal cyst Acute Lumbar transverse process fracture Acute Pelvic fracture Acute Sacral fracture Acute
== END 2016-06-04 15:35 | DRG 536 ==
LOC: EDUNIT# → F3N 15:58
PROVIDERS: ADMIT Hospitalist; ATTEND Internal Medicine
DX: S32.82XA Multiple fractures of pelvis without disruption of pelvic ring, initial encounter for closed fracture (principal); S32.058A Other fracture of fifth lumbar vertebra, initial encounter for closed fracture; S32.10XA Unspecified fracture of sacrum, initial encounter for closed fracture; F32.9 Major depressive disorder, single episode, unspecified; W10.8XXA Fall (on) (from) other stairs and steps, initial encounter; Y92.018 Other place in single-family (private) house as the place of occurrence of the external cause; Z72.0 Tobacco use
CPT/HCPCS: 92523-GN; 96374; 97162-GP; 97166-GO; 97530-GP; 97535-GO; G8978-GP-CL; G8979-GP-CI; G8980-GP-CI; G8987-GO-CJ; G8988-GO-CI; G9165-GN-CI; G9166-GN-CI; G9167-GN-CI; J1170; J1650; J2405

== ENCOUNTER → 2016-08-23 | Outpatient (CLI) | payer OTHER, MEDICARE | LOC: BMCIMAGING 13:48 | PROVIDERS: ATTEND Physician Assistant Medical | DX: R07.81 Pleurodynia (principal) | CPT/HCPCS: 71101-PO ==